=== PATIENT | male | born 1985 | race Caucasian/White ===

== ENCOUNTER 2020-10-21 08:51 | Emergency (ER) | payer BC, OTHER ==
[2020-10-22 07:46] LABS: SARS-CoV-2 PCR by NAA DETECTED (NotDetected)
== END 2020-10-21 09:27 | disposition home or self-care (01) ==
LOC: BURERS 08:51
DX: U07.1 COVID-19 (principal); F17.200 Nicotine dependence, unspecified, uncomplicated
CPT/HCPCS: 99283; U0003; U0005

== ENCOUNTER 2022-01-30 09:40 | Emergency (ER) | payer OTHER ==
[2022-01-30] MEDS ORDERED: Doxycycline 100 MG CAP ONE (10:05)
[2022-01-30] MEDS ORDERED: HYDROcodone/Acetaminophen 5/325 mg Tablet ONE (10:05)
== END 2022-01-30 10:37 | disposition home or self-care (01) ==
LOC: BURERS 09:40
DX: L02.31 Cutaneous abscess of buttock (principal); F17.210 Nicotine dependence, cigarettes, uncomplicated
CPT/HCPCS: 10060; 87070; 87205

== ENCOUNTER 2022-01-31 08:03 | Emergency (ER) | payer OTHER | END 2022-01-31 08:32 | disposition home or self-care (01) | LOC: BURERS 08:03 | DX: L02.31 Cutaneous abscess of buttock (principal); F17.210 Nicotine dependence, cigarettes, uncomplicated | CPT/HCPCS: 99282 ==

== ENCOUNTER 2022-02-01 09:30 | Emergency (ER) | payer OTHER | END 2022-02-01 09:45 | disposition home or self-care (01) | LOC: BURERS 09:30 | DX: L02.31 Cutaneous abscess of buttock (principal); F17.210 Nicotine dependence, cigarettes, uncomplicated | CPT/HCPCS: 99282 ==